=== PATIENT | female | born 1990 | race Caucasian/White ===

== ENCOUNTER 2018-07-12 21:27 | Emergency (ER) | payer MEDICAID ==
[~2018-07-12] VITALS: Ht 162.6 cm; Wt 82.6 kg
[2018-07-12 21:34] VITALS: Ht 162.6 cm; Wt 82.6 kg
[2018-07-12 22:53] LABS: BASOPHIL % 0.3 % (0-2); PLATELET COUNT 262 x10^3mcL (130-400); RED CELL DISTRIBUTION WIDTH 13.1 % (11.5-14.5)
[2018-07-12 22:54] LABS: CALCIUM 8.8 mg/dL (8.5-10.1); CHLORIDE SERUM 101 mmol/L (98-107); CREATININE SERUM 0.7 mg/dL (0.6-1.0); GFR1 > 60 mL/min; GLUCOSE SERUM 87 mg/dL (74-106); POTASSIUM SERUM 3.8 mmol/L (3.5-5.1); SODIUM SERUM 135 mmol/L (136-145)
[2018-07-12 23:03] LABS: ALKALINE PHOSPHATASE 81 U/L (46-116); ALT/SGPT 63 U/L (14-59); AST/SGOT 35 U/L (15-37); BILIRUBIN TOTAL 0.25 mg/dL (0.20-1.00); TOTAL PROTEIN, SERUM 7.5 g/dL (6.4-8.2)
[2018-07-12 23:10] LABS: ALBUMIN 3.2 g/dL (3.4-5.0)
[2018-07-12 23:40] LABS: UA SPECIFIC GRAVITY 1.015 (1.005-1.035); microscopic required? YES; urine erythrocyte TRACE (NEGATIVE)
[2018-07-13 00:27] VITALS: BP 151/62
== END 2018-07-13 00:36 | disposition home or self-care (01) ==
LOC: ED 21:27
PROVIDERS: Emergency Medicine
DX: O23.41 Unspecified infection of urinary tract in pregnancy, first trimester (principal); R51 Headache; Z3A.11 11 weeks gestation of pregnancy
CPT/HCPCS: 36415; J2765; J3010

== ENCOUNTER 2018-09-05 09:01 | Emergency (ER) | payer OTHER ==
[~2018-09-05] VITALS: Ht 162.6 cm; Wt 83.5 kg
[2018-09-05 09:04] VITALS: Ht 162.6 cm; Wt 83.5 kg
[2018-09-05 09:59] LABS: BASOPHIL % 0.5 % (0-2); PLATELET COUNT 232 x10^3mcL (130-400); RED CELL DISTRIBUTION WIDTH 13.1 % (11.5-14.5)
[2018-09-05 12:36] VITALS: BP 125/65
== END 2018-09-05 12:36 | disposition home or self-care (01) ==
LOC: ED 09:01
PROVIDERS: Emergency Medicine
DX: O26.892 Other specified pregnancy related conditions, second trimester (principal); R10.32 Left lower quadrant pain; R10.31 Right lower quadrant pain; R10.30 Lower abdominal pain, unspecified; Z3A.19 19 weeks gestation of pregnancy
CPT/HCPCS: 36415

== ENCOUNTER 2018-09-26 05:13 | Emergency (ER) | payer OTHER ==
[~2018-09-26] VITALS: Ht 162.6 cm; Wt 85.5 kg
[2018-09-26 05:16] VITALS: Ht 162.6 cm; Wt 85.5 kg
[2018-09-26 08:02] VITALS: BP 104/73
== END 2018-09-26 08:02 | disposition short-term general hospital (02) ==
LOC: ED 05:13
DX: O26.892 Other specified pregnancy related conditions, second trimester (principal); R10.9 Unspecified abdominal pain; Z3A.22 22 weeks gestation of pregnancy

== ENCOUNTER 2019-01-26 18:24 | Emergency (ER) | payer OTHER ==
[~2019-01-26] VITALS: Ht 162.6 cm; Wt 82.6 kg
[2019-01-26 19:25] VITALS: Ht 162.6 cm; Wt 82.6 kg
[2019-01-26 20:53] VITALS: BP 123/70
== END 2019-01-26 20:53 | disposition home or self-care (01) ==
LOC: ED 18:24
DX: N39.0 Urinary tract infection, site not specified (principal); Z98.890 Other specified postprocedural states

== ENCOUNTER 2019-06-29 21:13 | Emergency (ER) | payer MEDICAID ==
[~2019-06-29] VITALS: Ht 162.6 cm; Wt 86.6 kg
[2019-06-29 23:18] LABS: CALCIUM 9.2 mg/dL (8.5-10.1); CARBON DIOXIDE 23.1 mmol/L (21-32); CREATININE SERUM 1.3 mg/dL (0.6-1.0); POTASSIUM SERUM 3.4 mmol/L (3.5-5.1)
[2019-06-29 23:19] LABS: BASOPHIL % 0.3 % (0-2); PLATELET COUNT 252 x10^3mcL (130-400); RED CELL DISTRIBUTION WIDTH 12.7 % (11.5-14.5)
[2019-06-29 23:22] LABS: ALBUMIN 4.1 g/dL (3.4-5.0); BILIRUBIN TOTAL 0.4 mg/dL (0.20-1.00); TOTAL PROTEIN, SERUM 8.1 g/dL (6.4-8.2)
[2019-06-29 23:31] LABS: microscopic required? NO
[2019-06-29 23:42] LABS: UA SPECIFIC GRAVITY 1.025 (1.005-1.035); urine erythrocyte NEGATIVE (NEGATIVE)
[2019-06-30 03:03] VITALS: BP 112/72
== END 2019-06-30 03:03 | disposition home or self-care (01) ==
LOC: ED 21:13
PROVIDERS: Emergency Medicine
DX: R10.819 Abdominal tenderness, unspecified site (principal); R11.2 Nausea with vomiting, unspecified
CPT/HCPCS: J1885; Q0162

== ENCOUNTER 2019-09-11 06:50 | Emergency (ER) | payer MEDICAID ==
[~2019-09-11] VITALS: Ht 162.6 cm; Wt 83.9 kg
[2019-09-11 06:57] VITALS: Ht 162.6 cm; Wt 83.9 kg
[2019-09-11 07:44] LABS: BASOPHIL % 0.4 % (0-2); PLATELET COUNT 245 x10^3mcL (130-400); RED CELL DISTRIBUTION WIDTH 12.9 % (11.5-14.5)
[2019-09-11 07:56] VITALS: BP 107/57
[2019-09-11 08:08] LABS: ALBUMIN 3.7 g/dL (3.4-5.0); ALKALINE PHOSPHATASE 114 U/L (46-116); ALT/SGPT 242 U/L (14-59); AST/SGOT 82 U/L (15-37); BILIRUBIN TOTAL 0.8 mg/dL (0.20-1.00); CARBON DIOXIDE 22.6 mmol/L (21-32); CHLORIDE SERUM 105 mmol/L (98-107); GFR1 > 60 mL/min; GLUCOSE SERUM 113 mg/dL (74-106); POTASSIUM SERUM 3.8 mmol/L (3.5-5.1); SODIUM SERUM 138 mmol/L (136-145); TOTAL PROTEIN, SERUM 7.8 g/dL (6.4-8.2)
[2019-09-11 08:33] LABS: CALCIUM 8.6 mg/dL (8.5-10.1)
[2019-09-11 08:40] LABS: LIPASE 3794 IU/L (73-393)
== END 2019-09-11 08:35 | disposition home or self-care (01) ==
LOC: ED
PROVIDERS: Emergency Medicine
DX: K29.00 Acute gastritis without bleeding (principal)
CPT/HCPCS: 36415

== ENCOUNTER 2019-09-20 22:44 | Emergency (ER) | payer MEDICAID ==
[~2019-09-20] VITALS: Ht 160 cm; Wt 54.4 kg
[2019-09-20 22:44] VITALS: Ht 160 cm; Wt 54.4 kg
[2019-09-20 23:06] LABS: BASOPHIL % 1.1 % (0-2); PLATELET COUNT 264 x10^3mcL (130-400); RED CELL DISTRIBUTION WIDTH 12.5 % (11.5-14.5)
[2019-09-20 23:15] LABS: CALCIUM 8.9 mg/dL (8.5-10.1); CARBON DIOXIDE 29.2 mmol/L (21-32); CHLORIDE SERUM 103 mmol/L (98-107); GFR1 > 60 mL/min; GLUCOSE SERUM 103 mg/dL (74-106); POTASSIUM SERUM 3.6 mmol/L (3.5-5.1); SODIUM SERUM 141 mmol/L (136-145)
[2019-09-20 23:21] LABS: ALBUMIN 4.4 g/dL (3.4-5.0); ALKALINE PHOSPHATASE 90 U/L (46-116); ALT/SGPT 57 U/L (14-59); AMYLASE 40 U/L (25-115); AST/SGOT 18 U/L (15-37); BILIRUBIN TOTAL 0.7 mg/dL (0.20-1.00); LIPASE 188 IU/L (73-393)
[2019-09-21 00:44] VITALS: BP 113/60
== END 2019-09-21 00:44 | disposition home or self-care (01) ==
LOC: ED 22:44
PROVIDERS: Emergency Medicine
DX: R10.11 Right upper quadrant pain (principal)
CPT/HCPCS: J2270; J2405; J7030; Q0092

== ENCOUNTER 2019-10-26 03:07 | Emergency (ER) | payer MEDICAID ==
[~2019-10-26] VITALS: Ht 162.6 cm; Wt 86.6 kg
[2019-10-26 03:14] VITALS: Ht 162.6 cm; Wt 86.6 kg
[2019-10-26 04:10] LABS: BASOPHIL % 0.3 % (0-2); PLATELET COUNT 223 x10^3mcL (130-400); RED CELL DISTRIBUTION WIDTH 12.6 % (11.5-14.5)
[2019-10-26 04:17] LABS: CALCIUM 8.6 mg/dL (8.5-10.1); CARBON DIOXIDE 25.7 mmol/L (21-32); CHLORIDE SERUM 102 mmol/L (98-107); CREATININE SERUM 1.1 mg/dL (0.6-1.0); GFR1 > 60 mL/min; GLUCOSE SERUM 110 mg/dL (74-106); POTASSIUM SERUM 3.7 mmol/L (3.5-5.1); SODIUM SERUM 138 mmol/L (136-145)
[2019-10-26 04:22] LABS: ALBUMIN 3.8 g/dL (3.4-5.0); ALKALINE PHOSPHATASE 88 U/L (46-116); ALT/SGPT 91 U/L (14-59); AST/SGOT 54 U/L (15-37); BILIRUBIN TOTAL 0.79 mg/dL (0.20-1.00); TOTAL PROTEIN, SERUM 7.8 g/dL (6.4-8.2)
[2019-10-26 04:37] LABS: LIPASE 7064 IU/L (73-393)
[2019-10-26 06:53] VITALS: BP 100/58
== END 2019-10-26 06:51 | disposition home or self-care (01) ==
LOC: ED 03:07
PROVIDERS: Student in an Organized Health Care Education/Training Program
DX: K85.90 Acute pancreatitis without necrosis or infection, unspecified (principal)
CPT/HCPCS: J7030; Q9967

== ENCOUNTER 2019-11-30 03:05 | Emergency (ER) | payer MEDICAID ==
[~2019-11-30] VITALS: Ht 162.6 cm; Wt 82.8 kg
[2019-11-30 03:10] VITALS: Ht 162.6 cm; Wt 82.8 kg
[2019-11-30 03:34] LABS: BASOPHIL % 0.6 % (0-2); PLATELET COUNT 239 x10^3mcL (130-400); RED CELL DISTRIBUTION WIDTH 12.6 % (11.5-14.5)
[2019-11-30 04:07] LABS: CALCIUM 8.6 mg/dL (8.5-10.1); CARBON DIOXIDE 25.2 mmol/L (21-32); CREATININE SERUM 1.2 mg/dL (0.6-1.0); POTASSIUM SERUM 3.5 mmol/L (3.5-5.1)
[2019-11-30 04:12] LABS: ALBUMIN 3.9 g/dL (3.4-5.0); BILIRUBIN TOTAL 0.6 mg/dL (0.20-1.00); TOTAL PROTEIN, SERUM 8.1 g/dL (6.4-8.2)
[2019-11-30 04:39] VITALS: BP 104/57
== END 2019-11-30 04:39 | disposition home or self-care (01) ==
LOC: ED 03:05
PROVIDERS: Emergency Medicine
DX: K85.90 Acute pancreatitis without necrosis or infection, unspecified (principal)
CPT/HCPCS: J2405; J3010; J7030

== ENCOUNTER 2020-01-30 05:44 | Emergency (ER) | payer MEDICAID ==
[~2020-01-30] VITALS: Ht 162.6 cm; Wt 85.7 kg
[2020-01-30 05:52] VITALS: Ht 162.6 cm; Wt 85.7 kg
[2020-01-30 07:10] LABS: CALCIUM 8.2 mg/dL (8.5-10.1); CARBON DIOXIDE 23.1 mmol/L (21-32); CHLORIDE SERUM 104 mmol/L (98-107); CREATININE SERUM 0.8 mg/dL (0.6-1.0); GFR1 > 60 mL/min; GLUCOSE SERUM 97 mg/dL (74-106); POTASSIUM SERUM 3.5 mmol/L (3.5-5.1); SODIUM SERUM 137 mmol/L (136-145)
[2020-01-30 07:42] LABS: PLATELET COUNT 201 x10^3mcL (130-400); RED CELL DISTRIBUTION WIDTH 12.5 % (11.5-14.5)
[2020-01-30 10:09] LABS: BAND NEUTROPHIL 1 % (0-10); MONOCYTE 6 % (0-7); SEGMENTED NEUTROPHILS 25 % (37-75)
[2020-01-30 10:12] LABS: rbc morphology (normal/abnorm) NORMAL (NORMAL)
[2020-01-30 10:13] LABS: PLATELET MORPHOLOGY PLATELETS NORMAL
[2020-01-30 10:35] VITALS: BP 102/64
== END 2020-01-30 10:35 | disposition home or self-care (01) ==
LOC: ED 05:44
PROVIDERS: Emergency Medicine
DX: U07.1 COVID-19 (principal)
CPT/HCPCS: U0003

== ENCOUNTER 2020-02-01 12:56 | Emergency (ER) | payer MEDICAID, SELFPAY ==
[~2020-02-01] VITALS: Ht 162.6 cm; Wt 81.6 kg
[2020-02-01 13:05] VITALS: Ht 162.6 cm; Wt 81.6 kg
[2020-02-01 15:58] VITALS: BP 110/70
== END 2020-02-01 15:58 | disposition home or self-care (01) ==
LOC: ED 12:56
DX: U07.1 COVID-19 (principal)